=== PATIENT | female | born 1990 | race African-American/Black ===

== ENCOUNTER 2017-09-10 18:26 | Emergency (ER) | payer OTHER ==
[~2017-09-10] VITALS: Ht 160 cm; Wt 59.8 kg
[2017-09-10 19:34] LABS: BASOPHIL (%) 0.2 % (0-1); EOSINOPHIL (%) 0.5 % (0-5); EOSINOPHIL COUNT 0.1 K/uL (0-0.3); HEMATOCRIT 40.2 % (36.0-46.0); IMMATURE GRANULOCYTE (%) 0.4 % (0.0-0.7); LYMPHOCYTE COUNT 1.6 K/uL (1.0-2.8); MCH 30.1 PG (29.0-34.0); MCHC 32.3 G/DL (30.0-36.0); MCV 93.1 FL (83-99); MONOCYTE (%) 7.1 % (3-12); MONOCYTE COUNT 0.8 K/uL (0-0.8); NEUTROPHIL (%) 77.8 % (45-76); NEUTROPHIL COUNT 8.7 K/uL (1.8-6.4); PLATELET COUNT 210 K/uL (156-360); RBC DIS.WIDTH-CV 13.2 % (11.8-14.6); RBC DIS.WIDTH-SD 44.9 % (39-53); RED BLOOD COUNT 4.32 M/uL (3.80-5.20); WHITE BLOOD COUNT 11.2 K/uL (4.1-10.2)
[2017-09-10 19:47] LABS: ALBUMIN 3.9 g/dL (3.2-4.8); CHLORIDE 105 mEq/L (99-109); POTASSIUM 3.9 mEq/L (3.7-5.4); SODIUM 140 mEq/L (136-147)
[2017-09-10 19:48] LABS: MAGNESIUM 2.2 mg/dL (1.3-2.7)
[2017-09-10 19:50] LABS: GLUCOSE 93 mg/dL (70-99); TOTAL PROTEIN 8.3 g/dL (6.4-8.3)
[2017-09-10 19:52] LABS: TOTAL BILIRUBIN 0.1 mg/dL (0.0-1.0)
[2017-09-10 19:53] LABS: ALKALINE PHOSPHATASE 104 IU/L (3-129); CREATININE 0.6 mg/dL (0.6-1.3); GFR ESTIMATE (CALCULATED) > 59 mL/min/
[2017-09-10 19:54] LABS: UREA NITROGEN (BUN) 17 mg/dL (9-23)
[2017-09-10 19:55] LABS: AST (GOT) 13 IU/L (2-34)
[2017-09-10 19:56] LABS: ALT (GPT) 12 IU/L (3-49)
[2017-09-10 19:57] LABS: LIPASE 34 U/L (1.0-51.0)
[2017-09-10 20:03] LABS: APPEARANCE CLEAR ((CLEAR)); BILIRUBIN NEGATIVE; BLOOD MODERATE; COLOR YELLOW ((YELLOW)); GLUCOSE (STRIP) NEGATIVE; KETONES NEGATIVE; LEUKOCYTES MODERATE; NITRITE NEGATIVE; PROTEIN (STRIP) NEGATIVE; SPECIFIC GRAVITY 1.013 (1.000-1.030); UROBILINOGEN 0.2 MG/DL (0.2-1.0)
[2017-09-10 20:24] LABS: BACTERIA RARE /HPF; EPITHELIAL CELLS 2+ /HPF; MUCUS TRACE /LPF; UCUL ADDED? YES; WHITE BLOOD CELLS 15-20 /HPF (0-5)
[2017-09-10] MEDS ORDERED: LEVAQUIN750 MG PO (22:14)
[2017-09-10] MEDS ORDERED: PERCOCET 5/31 TABLET PO (22:14)
[2017-09-11 00:10] VITALS: BP 111/73
== END 2017-09-11 00:14 ==
LOC: EME 18:26
PROVIDERS: Emergency Medicine
DX: N39.0 Urinary tract infection, site not specified (principal); M54.9 Dorsalgia, unspecified; I10 Essential (primary) hypertension; Z86.73 Personal history of transient ischemic attack (TIA), and cerebral infarction without residual deficits; Z87.820 Personal history of traumatic brain injury
CPT/HCPCS: 74177; 80053; 81003; 83690; 83735; 85025; 87086; J1885; J2405; J7050

== ENCOUNTER 2017-10-11 13:20 | Emergency (ER) | payer SELFPAY ==
[~2017-10-11] VITALS: Ht 152.4 cm; Wt 58.6 kg
[~2017-10-11 13:20] MED LIST: LEVAQUIN750 MG PO; PERCOCET 5/31 TABLET PO
[2017-10-11 14:39] LABS: HEMATOCRIT 42.2 % (36.0-46.0); HEMOGLOBIN 13.7 G/DL (11.9-15.5); MCH 30.4 PG (29.0-34.0); MCHC 32.5 G/DL (30.0-36.0); MCV 93.6 FL (83-99); PLATELET COUNT 162 K/uL (156-360); RBC DIS.WIDTH-CV 13.4 % (11.8-14.6); RBC DIS.WIDTH-SD 45.6 % (39-53); RED BLOOD COUNT 4.51 M/uL (3.80-5.20); WHITE BLOOD COUNT 6.2 K/uL (4.1-10.2)
[2017-10-11 16:48] LABS: CHLORIDE 106 mEq/L (99-109); POTASSIUM 4.1 mEq/L (3.7-5.4); SODIUM 140 mEq/L (136-147)
[2017-10-11 16:50] LABS: GLUCOSE 82 mg/dL (70-99); TOTAL PROTEIN 8.3 g/dL (6.4-8.3)
[2017-10-11 16:52] LABS: TOTAL BILIRUBIN 0.2 mg/dL (0.0-1.0)
[2017-10-11 16:53] LABS: SERUM ETHYL ALCOHOL < 10 mg/dL
[2017-10-11 16:54] LABS: ALKALINE PHOSPHATASE 91 IU/L (3-129); CREATININE 0.5 mg/dL (0.6-1.3); GFR ESTIMATE (CALCULATED) > 59 mL/min/
[2017-10-11 16:55] LABS: AST (GOT) 13 IU/L (2-34); UREA NITROGEN (BUN) 14 mg/dL (9-23)
[2017-10-11 16:57] LABS: ALT (GPT) 14 IU/L (3-49)
[2017-10-11 17:02] LABS: QUANTITATIVE HCG < 4.0 MIU/ML
[2017-10-11 19:29] VITALS: BP 127/72
== END 2017-10-11 19:30 ==
LOC: EME 13:20
PROVIDERS: Emergency Medicine
DX: F32.9 Major depressive disorder, single episode, unspecified (principal); Z87.820 Personal history of traumatic brain injury; Z89.512 Acquired absence of left leg below knee; Z89.511 Acquired absence of right leg below knee; S80.11XA Contusion of right lower leg, initial encounter; I10 Essential (primary) hypertension; I69.354 Hemiplegia and hemiparesis following cerebral infarction affecting left non-dominant side; Z93.1 Gastrostomy status; Z95.828 Presence of other vascular implants and grafts; Z98.890 Other specified postprocedural states
CPT/HCPCS: 73502; 73552; 80053; 81003; 84702; 85027; 90839; 99281; 99284; G0480

== ENCOUNTER 2017-10-12 13:19 | Emergency (ER) | payer SELFPAY ==
[~2017-10-12] VITALS: Ht 152.4 cm; Wt 58.8 kg
[2017-10-12 17:52] VITALS: BP 99/55
== END 2017-10-12 17:54 ==
LOC: EME 13:19
DX: F32.9 Major depressive disorder, single episode, unspecified (principal); F41.9 Anxiety disorder, unspecified; Z04.6 Encounter for general psychiatric examination, requested by authority; Z86.73 Personal history of transient ischemic attack (TIA), and cerebral infarction without residual deficits; Z89.512 Acquired absence of left leg below knee; Z89.511 Acquired absence of right leg below knee; I10 Essential (primary) hypertension
CPT/HCPCS: 90837; 99281; 99284